=== PATIENT | male | born 1970 | race Caucasian/White ===

== ENCOUNTER 2016-09-10 05:32 | Day surgery (SDC) | payer MEDICARE ==
[~2016-09-10] VITALS: Ht 182.9 cm; Wt 108.0 kg
[~2016-09-10 05:32] MED LIST: AMLO5TAB2 PO; IRBE300T18 PO
[2016-09-10] MEDS ORDERED: Propofol 10,000 mCg/mL 20 mL Inj ONE (05:33)
[2016-09-10] MEDS ORDERED: Lidocaine 0.5% 50 mL Inj ONE (05:33)
[2016-09-10] MEDS ORDERED: fentaNYL-PF 50 mCg/mL 2 mL Inj ONE (05:33)
[2016-09-10] MEDS: Lactated Ringer's 1,000 ML IV SCH ×2 (05:40→06:00)
[2016-09-10 05:49] VITALS: BP 144/88; PULSE 78; RESP 17; O2SAT 98
--- NOTE | 2016-09-10 07:12 | PCM.HPANE ---
Patient Data Date of Service: Sep 10, 2016 (0711) Surgeon Admitting Provider: Attending Provider:Shar Carrasquillo DO Primary Care Physician:Corey Anguiano MD Other Provider:Tuan Brar Anesthesia Reason for Visit Left Carpal Tunnel Syndrome Ht/WT & BMI Height (Feet): 6 Height (Inches): 0 Weight (Kilograms): 108 Body Mass Index 32.00 Allergies Coded Allergies: amlodipine (Verified Allergy, Severe, ANKLE SWELLING, 09/10/16) morphine (Verified Allergy, Unknown, "psychotic", 09/11/15) Past Anesthesia History Anesthesia History: Positive for:: Fam Anesthesia Reaction (lidocaine absorption led to heart attack in father), Denies:: Abnormal Airway, Anesthesia Reactions, Difficult Intubation, Fam Malignant Hypertherm, Malignant Hyperthermia Diabetes History Hx Diabetes?: No MRSA MRSA: No Medications Hypertension Medication: Yes Home Meds Incl Beta Hanna: No Reported Medications Irbesartan 300 Mg [id number] Mg PO DAILY 09/05/16 Discontinued Reported Medications Amlodipine 5 Mg Tablet5 Mg PO DAILY Ref 0 09/05/16 Cholecalciferol (Vitamin D3) (Vitamin D3)2,000 Unit Tablet2,000 Unit PO 09/19/15 Irbesartan 300 Mg [id number] Mg PO DAILY 09/11/15 History History of ENT Problems?: No HEENT History: Denies:: Abnormal Airway Cataracts Difficult Intubation Dysphagia Hearing Problem Sinus Problem TMJ Denture Type: None Teeth Condition: Tooth Decay Missing Teeth Hx of Heart Problems?: Yes Cardiovascular History: Positive for:: Hypertension Denies:: AICD Abdominal Aortic Aneurism Atrial Fibrillation Cardiac Surgery Chest Pain Congestive Heart Failure Edema Heart Murmur Irregular Heartbeat Pacemaker Rheumatic Fever Hx of Respiratory Problem?: No Respiratory History: Denies:: Asthma COPD Emphysema Oxygen Administration Pneumonia Tuberculosis Use of C-PAP Machine Hx Neurologic Problems?: Yes Neurological History: Positive for:: 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 Pressure Ulcers Hx Musculoskeletal Problems?: Yes Musculoskeletal History: Positive for:: Back Injury (neck arthritis ) Musculoskeletal Trauma (bilateral carpal tunnel with symptoms, left current admission plan) Denies:: Joint Replacement (right hip 2016) Systemic Lupus Hx of Psycho/Social Problems?: No Psycho Social History: Denies:: Anxiety Hx Depression Hx Surgeries?: Yes (trace, ortho, right hip replacement) Hx Any Other Health Problems?: Yes Other History: Denies:: Cancer Thyroid Disease History Blood Transfusions: Denies:: Blood Transfusions Hx Diabetes: No Hx Alcohol Use: YesHx Substance Use: Yes (marijuana occasionally) Smoking Status: Former Smoker Have You Smoked inLast 12 mo: Yes Stop/Bang S-Snoring: Do You Snore Loudly: Yes T-Tired: feel tired, fatigued: Yes O-Obsered: Observed not breath: No P-Blood Pressure: treated: Yes B- Body Mass Index > 35 kg/m2: No A- Age over 50: No N- Neck Large Circumference: No G- Gender Male: Yes REGAN Total Score: 4 REGAN Risk Assessment: Low Risk, <3 Yes Risk Assessment Category Category 1A: Patient has history of documented sleep apnea, and HAS NOT received any narcotic, sedative or anesthesia administration during this stay. Category 1B: Patient has history of documented sleep apnea, and HAS received any narcotic , sedative or anesthesia administration during this stay Category 2: Patient has SUSPECTED Obstructive Sleep Apnea, and HAS received any narcotic , sedative or anesthesia administration during this stay. Category 3: Patient has SUSPECTED Obstructive Sleep Apnea and HAS NOT received narcotic, sedative or anesthesia administration during this stay. Category 4: Outpatient in Procedural Areas with known sleep apnea or who screen positive for High Risk via the STOP/BANG questionnaire. Exam Exam Vital Signs Vital Signs Date Time Temp Pulse Resp B/P Pulse Ox O2 Delivery O2 Flow Rate FiO2 09/10/16 05:49 35.9 78 17 144/88 98 Room Air General Appearance: Alert, Oriented X3, Cooperative HEENT/AIRWAY: MP 2 Lungs: Clear to Auscultation Heart: Exam Unremarkable Meds/Labs/Diagnostics Admission Meds Current Medications Lactated Ringer's (Lr) 1,000 ml @ 120 mls/hr [id number] IV Last administered on t 05:40; Start 09/10/16 at 05:00; Stop 09/10/16 at 13:19 Plan Impression Patient chart reviewed, patient interviewed and anesthestic plan with risks, benefits, and alternatives discussed, and informed consent obtained. NPO per Anesth. Guidelines: Yes ASA Physical Status: ASA2 Mod Systemic Disease Anesthetic Plan: Regional Block ([place]ANO BLOCK) Bene/Risks/Altern/Consents: Yes HP Complete Prior to Induction: Yes Fer Perry MD Sep 10, 2016 07:12
[2016-09-10] MEDS ORDERED: HYDROcodone-APAP 5-325 mg Tablet PO PRN (07:20)
[2016-09-10] MEDS ORDERED: Lidocaine 1%-Epi 1:100,000 20 mL Inj INFILTRATE ONE (07:38)
[2016-09-10] MEDS ORDERED: Lactated Ringer's 500 ML IV PRN (07:46)
[2016-09-10] MEDS ORDERED: Lactated Ringer's 1,000 ML IV SCH (07:46)
[2016-09-10] MEDS ORDERED: fentaNYL-PF 50 mCg/mL 2 mL Inj IVPUSH PRN (07:50)
[2016-09-10] MEDS ORDERED: Dexamethasone 4 mg/mL Inj IVPUSH PRN (07:50)
[2016-09-10] MEDS ORDERED: Ondansetron 2 mg/mL 2 mL Inj IVPUSH PRN (07:50)
[2016-09-10] MEDS ORDERED: EPHEDrine Sulfate 50 mg/mL Inj IVPUSH PRN (07:50)
[2016-09-10] MEDS ORDERED: MetoCLOpramide 5 mg/mL 2 mL Inj IVPUSH PRN (07:50)
[2016-09-10] MEDS ORDERED: Phenylephrine 10,000 mCg/mL Inj IVPUSH PRN (07:50)
[2016-09-10 07:55] VITALS: BP 151/78; PULSE 84; RESP 16; O2SAT 98
--- NOTE | 2016-09-10 07:55 | PCM.ANEP1 ---
Post Anesthesia PACU Phase 1 Assessment Vital Signs Vital Signs Date Time Temp Pulse Resp B/P Pulse Ox O2 Delivery O2 Flow Rate FiO2 09/10/16 05:49 35.9 78 17 144/88 98 Room Air Anesthetic Administered: MAC Level of Alertness: Awake, talking ESCOBEDO's with Equal Strength: Yes Pain: No Pain Scale Score: 0 Nausea or Vomiting: No CV Function & Hydration Stable: Yes Airway Device: NONE Oxygen Delivery: Room Air Lungs: Clear to Auscultation Dermatome Level: Full Sensation Summary UNEVENTFUL BLOCK PACU Phase 2 Assessment Complications: No Follow up Care: No Patient Instructions Provided: N/A Fer Perry MD Sep 10, 2016 07:54
[2016-09-10 08:12] VITALS: BP 150/82; PULSE 80; RESP 16; O2SAT 97
--- NOTE | 2016-09-10 08:33 | OP ---
[address] [address] OPERATIVE REPORT PATIENT: TONY ZHAO : 1970 MR#: [id number] ADMIT: 09/10/2016 JOB ID: [id number] DATE OF SURGERY: 09/10/2016 PREOPERATIVE DIAGNOSIS(ES): Left carpal tunnel syndrome. POSTOPERATIVE DIAGNOSIS(ES): Left carpal tunnel syndrome. PROCEDURE: Left open carpal tunnel release. SURGEON: Shar Carrasquillo DO MOTEL MAID: Jonelle Estrella, PGY1. ANESTHESIA: [place] block. BRIEF HISTORY: The patient is a pleasant, 46-year-old male, with a longstanding history of left hand pain and paresthesias. He failed conservative treatment for carpal tunnel syndrome, and opted to proceed with discussion for a left open carpal tunnel release. He understood the risks to include, but not limited to, neurovascular injury, tendon injury, infection, failure to resolve the patient's preoperative symptoms, stiffness, persistent pain which may require further intervention. The patient had all questions answered. Consent was signed and placed in the chart. PROCEDURE IN DETAIL: The patient was brought to the operative suite and placed supine on the operating table. Surgical time-out was performed. Everyone was in agreement. After appropriate anesthesia was obtained, the left upper extremity was then prepped and draped in a sterile fashion. A 2 cm longitudinal incision was made in line with the radial aspect of the ring finger at the ulnar aspect of the palmaris longus. The incision was kept distal to the wrist crease and proximal to Fitzpatrick's cardinal line. Subcutaneous tissues were dissected. Bipolar electrocautery utilized to maintain hemostasis throughout the procedure. The palmar fascia was first identified and incised longitudinally in line with the skin incision, followed by exposure of the underlying transverse carpal ligament. The transverse carpal ligament was then released in its entirety to include the distal extent of the antebrachial fascia. Copious irrigation was performed, followed by closure of the skin with 5-0 nylon in a simple interrupted fashion. The patient was then placed in a bulky soft dressing. ESTIMATED BLOOD LOSS: Less than 1 cc. COMPLICATIONS: None. DISPOSITION: The patient tolerated the procedure well. Anesthesia was reversed. The patient was transferred back to recovery. POSTOPERATIVE PLAN: The patient will follow up in the office in two weeks. We will remove the patient's sutures at that time and have him start working on range of motion and scar mobilization.
== END 2016-09-10 23:59 | disposition home or self-care (01) ==
LOC: SAS 05:32
PROVIDERS: ATTEND Orthopaedic Surgery
DX: G56.02 Carpal tunnel syndrome, left upper limb (principal); I10 Essential (primary) hypertension; Z87.891 Personal history of nicotine dependence
CPT/HCPCS: 64721; J2250; J3010; J7120